=== PATIENT | female | born 1955 | race Asian ===

== ENCOUNTER → 2016-05-18 | Outpatient (CLI) | payer BC ==
[~2016-05-18] MED LIST: BARACLUDE0.5 MG PO; COUMADIN 3MG3 MG/TAB PO; FEROSUL325 MG PO; HYDROCORT CREAM2.5% TP; NO HOME MEDICATIONS; ROXICODONE 55 MG/TAB PO; TYLENOL 325MG325 MG PO; ULTRAM 50MG TAB50 MG PO
== END ==
LOC: COL.RAD 11:55
DX: I10 Essential (primary) hypertension (principal); K74.69 Other cirrhosis of liver

== ENCOUNTER → 2017-05-17 | Outpatient (CLI) | payer BC | LOC: COL.RAD 09:36 | DX: R93.2 Abnormal findings on diagnostic imaging of liver and biliary tract (principal); K74.69 Other cirrhosis of liver; N28.1 Cyst of kidney, acquired; N26.1 Atrophy of kidney (terminal) ==

== ENCOUNTER → 2017-11-21 | Outpatient (CLI) | payer BC | LOC: COL.RAD 09:32 | DX: B18.1 Chronic viral hepatitis B without delta-agent (principal); K74.60 Unspecified cirrhosis of liver; N28.1 Cyst of kidney, acquired ==

== ENCOUNTER 2018-01-08 09:23 | Emergency (ER) | payer BC ==
[~2018-01-08] VITALS: Ht 157.5 cm; Wt 50.0 kg
[2018-01-08 09:30] VITALS: TEMP 98
[2018-01-08] MEDS ORDERED: COZAAR 50MG50 MG/TAB PO (09:54)
[2018-01-08 10:34] VITALS: BP 109/76; PULSE 92
== END 2018-01-08 10:34 | disposition home or self-care (01) ==
LOC: COL.ER 09:23
DX: S90.31XA Contusion of right foot, initial encounter (principal); I10 Essential (primary) hypertension; W20.8XXA Other cause of strike by thrown, projected or falling object, initial encounter; Y92.009 Unspecified place in unspecified non-institutional (private) residence as the place of occurrence of the external cause

== ENCOUNTER → 2018-08-05 | Outpatient (CLI) | payer BC ==
[~2018-08-05] MED LIST changes: +COZAAR 50MG50 MG/TAB PO
== END ==
LOC: COL.RAD 06-09 08:15
DX: K74.69 Other cirrhosis of liver (principal); B18.1 Chronic viral hepatitis B without delta-agent

== ENCOUNTER → 2019-02-27 | Outpatient (CLI) | payer BC | LOC: COL.RAD 08:41 | DX: B18.1 Chronic viral hepatitis B without delta-agent (principal); K74.69 Other cirrhosis of liver; N28.1 Cyst of kidney, acquired ==

== ENCOUNTER → 2019-08-27 | Outpatient (CLI) | payer BC | LOC: COL.RAD 08-25 10:30 | DX: B18.1 Chronic viral hepatitis B without delta-agent (principal); K74.69 Other cirrhosis of liver; N28.1 Cyst of kidney, acquired ==

== ENCOUNTER → 2019-09-03 | Outpatient (CLI) | payer BC | LOC: COL.RAD 10:23 | DX: E04.2 Nontoxic multinodular goiter (principal) ==

== ENCOUNTER → 2019-09-21 | Outpatient (CLI) | payer BC | LOC: MC.RAD 13:30 | DX: Z12.31 Encounter for screening mammogram for malignant neoplasm of breast (principal) ==

== ENCOUNTER → 2019-12-22 | Outpatient (CLI) | payer BC | LOC: ZCOL.LAB 21:21 | DX: B34.9 Viral infection, unspecified (principal); Z20.828 Contact with and (suspected) exposure to other viral communicable diseases ==

== ENCOUNTER → 2020-06-08 | Outpatient (CLI) | payer OTHER, MEDICARE | LOC: COL.RAD 07:07 | DX: E04.1 Nontoxic single thyroid nodule (principal) ==

== ENCOUNTER → 2020-09-06 | Outpatient (CLI) | payer MEDICARE | LOC: COL.RAD 11:28 | DX: E04.2 Nontoxic multinodular goiter (principal) ==

== ENCOUNTER → 2020-09-22 | Outpatient (CLI) | payer MEDICARE | LOC: MC.RAD 08:41 | DX: Z12.31 Encounter for screening mammogram for malignant neoplasm of breast (principal) ==

== ENCOUNTER → 2021-01-23 | Outpatient (CLI) | payer MEDICARE | LOC: COL.RAD 07:41 | DX: K74.69 Other cirrhosis of liver (principal); B18.1 Chronic viral hepatitis B without delta-agent ==

== ENCOUNTER → 2021-08-15 | Outpatient (CLI) | payer MEDICARE | LOC: COL.RAD 07:22 | DX: K74.69 Other cirrhosis of liver (principal); B18.1 Chronic viral hepatitis B without delta-agent ==

== ENCOUNTER → 2022-02-28 | Outpatient (CLI) | payer MEDICARE | LOC: COL.RAD 10:50 | DX: B18.1 Chronic viral hepatitis B without delta-agent (principal); K74.69 Other cirrhosis of liver ==

== ENCOUNTER → 2022-06-01 | Outpatient (CLI) | payer MEDICARE | LOC: COL.RAD 10:35 | DX: E04.1 Nontoxic single thyroid nodule (principal) ==